=== PATIENT | female | born 2000 | race Caucasian/White ===

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

== ENCOUNTER 2023-03-15 17:03 | Emergency (ER) | payer OTHER ==
[2023-03-15 17:17] VITALS: PULSE 77
[2023-03-15 19:46] VITALS: BP 129/78
== END 2023-03-15 19:18 | disposition home or self-care (01) ==
LOC: JD.ED 17:03
DX: M25.572 Pain in left ankle and joints of left foot (principal)
CPT/HCPCS: 73610-26-LT; 73610-LT; 99282; 99283